=== PATIENT | male | born 1990 | race Caucasian/White ===

== ENCOUNTER 2019-03-01 17:46 | Emergency (ER) | payer BC ==
[~2019-03-01] VITALS: Ht 185.4 cm; Wt 82.9 kg
[2019-03-01 17:50] VITALS: BP 167/60
[2019-03-01] MEDS ORDERED: BUPIVACAINE/PF 0.5% ONE (18:46)
--- NOTE | 2019-03-01 19:00 | NUR ---
LOCAL BLOCK PERFORMED BY PROVIDED FOR DENTAL PAIN
--- NOTE | 2019-03-01 19:10 | NUR ---
Patient reports pain completely improved (0/10). Provided with list of dentists
== END 2019-03-01 19:20 | disposition home or self-care (01) ==
LOC: ED 19:00
DX: K02.9 Dental caries, unspecified (principal); K08.89 Other specified disorders of teeth and supporting structures
CPT/HCPCS: 64402; 99284